=== PATIENT | male | born 1985 | race Caucasian/White ===

== ENCOUNTER → 2021-04-14 | Outpatient (CLI) | payer OTHER ==
[2021-04-14 16:30] LABS: BASO # 0.1 10^3/uL (0.0-0.2); BASO % 0.8 % (0.0-1.0); EOS # 0.2 10^3/uL (0.0-0.5); EOS % 2.5 % (0.0-3.0); HEMATOCRIT 49.4 % (42.0-52.0); HEMOGLOBIN 17.1 g/dl (13.5-17.5); MEAN CORPUSCULAR HEMOGLOBIN 32.1 pg (27.0-33.0); MEAN CORPUSCULAR HGB CONC 34.6 g/dl (32.0-36.5); MEAN CORPUSCULAR VOLUME 92.9 fl (80.0-96.0); MONO # 0.6 10^3/uL (0.0-0.8); MONO % 8.8 % (2.0-8.0); NEUTROPHILS # 3.6 10^3/uL (1.5-8.5); NEUTROPHILS % 56.6 % (36.0-66.0); PLATELET COUNT, AUTOMATED 262 10^3/uL (150-450); RED BLOOD COUNT 5.32 10^6/uL (4.30-6.10); WHITE BLOOD COUNT 6.4 10^3/uL (4.0-10.0)
[2021-04-14 17:18] LABS: ALBUMIN 4.2 GM/DL (3.2-5.2); ALT/SGPT 78 U/L (12-78); BILIRUBIN,TOTAL 0.5 MG/DL (0.2-1.0); BLOOD UREA NITROGEN 19 MG/DL (7-18); CALCIUM LEVEL 9.7 MG/DL (8.5-10.1); CARBON DIOXIDE LEVEL 28 MEQ/L (21-32); CHLORIDE LEVEL 104 MEQ/L (98-107); GLOMERULAR FILTRATION RATE > 60.0 (>60); GLUCOSE, FASTING 88 MG/DL (70-100); MAGNESIUM LEVEL 2.5 MG/DL (1.8-2.4); POTASSIUM SERUM 4.5 MEQ/L (3.5-5.1); SODIUM LEVEL 140 MEQ/L (136-145); TOTAL PROTEIN 8.2 GM/DL (6.4-8.2)
== END ==
LOC: M WUC 15:05
PROVIDERS: ATTEND Physician Assistant
DX: R06.02 Shortness of breath (principal)

== ENCOUNTER → 2021-09-04 | Outpatient (CLI) | payer OTHER ==
--- NOTE | 2021-09-04 15:00 | REP ---
INDICATION: LOW BACK PAIN. COMPARISON: None. TECHNIQUE: AP and lateral views FINDINGS: Vertebral body height and alignment is within normal limits. The disc spaces are symmetric and well maintained. The pedicles are intact bilaterally. IMPRESSION: Within normal limits <Electronically signed by Jb Padron > 09/04/21 [id number]
--- NOTE | 2021-09-04 15:02 | REP ---
INDICATION: LOW BACK. COMPARISON: None. TECHNIQUE: Six views total FINDINGS: Vertebral body height and alignment is within normal limits. The lumbar lordosis might be slightly increased on the neutral view. Flexion and extension bending views show no instability. The disc spaces are symmetric and well maintained throughout. There is no significant facet joint degenerative change. There is no spondylolysis or spondylolisthesis. Pedicles are intact bilaterally. IMPRESSION: No definite abnormality. Findings as described above. <Electronically signed by Jb Padron > 09/04/21 [id number]
== END ==
LOC: M SOG 13:30
PROVIDERS: ATTEND Orthopaedic Surgery Sports Medicine
DX: M54.50 Low back pain, unspecified (principal)

== ENCOUNTER → 2021-11-10 | Outpatient (CLI) | payer OTHER ==
--- NOTE | 2021-11-10 19:19 | REP ---
INDICATION: PAIN. COMPARISON: None. TECHNIQUE: AP, lateral, axial views of the left elbow FINDINGS: Osseous structures, joint spaces, and surrounding soft tissues are essentially age-appropriate and within normal limits. No evidence for acute or obvious healed injury. No overt degenerative changes. Surrounding soft tissues are normal. IMPRESSION: Age-appropriate left elbow radiographs. <Electronically signed by Jaya Sevilla > 11/10/21 [id number]
--- NOTE | 2021-11-10 19:20 | REP ---
INDICATION: PAIN COMPARISON: None. TECHNIQUE: Internal rotation, external rotation, axillary, neutral and Y view of the left shoulder. FINDINGS: No acute fracture or dislocation. The acromioclavicular and glenohumeral joints are intact. No periarticular calcifications or degenerative changes are appreciated. Sub acromial space is normal. Surrounding soft tissues are unremarkable. IMPRESSION: Normal age-appropriate left shoulder radiographs. <Electronically signed by Jaya Sevilla > 11/10/21 [id number]
== END ==
LOC: M SOG 12:51
PROVIDERS: ATTEND Orthopaedic Surgery Sports Medicine
DX: M25.312 Other instability, left shoulder (principal); M25.522 Pain in left elbow

== ENCOUNTER → 2022-05-13 | Outpatient (REF) | payer OTHER | LOC: M SMT 17:01 | PROVIDERS: ATTEND Urology | DX: Z30.2 Encounter for sterilization (principal) ==

== ENCOUNTER → 2025-08-09 | Outpatient (REF) | payer OTHER | LOC: M LAB REF 18:26 | PROVIDERS: ATTEND Internal Medicine | DX: Z13.6 Encounter for screening for cardiovascular disorders (principal); Z82.49 Family history of ischemic heart disease and other diseases of the circulatory system ==